=== PATIENT | male | born 1975 | race Caucasian/White ===

== ENCOUNTER 2018-12-16 19:19 | Emergency (ER) | payer OTHER ==
[2018-12-16] MEDS ORDERED: NS 1,000 ML IV ONE ×2 (19:40→21:03)
[2018-12-16] MEDS ORDERED: ONDANSETRON 4 MG/2 ML VIAL IVP ONE (19:45)
[2018-12-16] MEDS ORDERED: HYDROmorphONE/DILAUDID 2 MG/ML INJ IVP ONE (19:45)
[2018-12-16] MEDS ORDERED: HYDROmorphONE/DILAUDID 1 MG/ML INJ ONE (19:46)
--- NOTE | 2018-12-16 19:54 | EDPHY ---
H & P Time Seen by Provider: 12/16/18 19:39 HPI/ROS: HPI Lower abdominal pain. 43-year-old male by private vehicle with his . This patient reports sudden- onset right flank with right lower quadrant abdominal pain described as sharp, stabbing and cramping starting 45 min prior to arrival. He has had nausea but no vomiting. No urinary complaints. No prior surgical history. No history of ureterolithiasis. ROS: Constitutional: No fever, no chills. No weakness. Eyes: No discharge. No changes in vision. ENT: No sore throat. No nasal congestion or rhinorrhea. Respiratory: No cough. No shortness of breath. Cardiac: No chest pain, no palpitations. Gastrointestinal: As above, no vomiting, no diarrhea. Genitourinary: No hematuria. No dysuria or increased frequency with urination. Musculoskeletal: No back pain. No neck pain. No myalgias or arthralgias. Skin: No rashes. Neurological: No headache. No focal weakness or altered sensation. Past medical history: He denies any significant past medical history. Social history: Nonsmoker. Here with his . No alcohol. Physical Exam: General Appearance: Alert, he shaking and writhing, he appears very uncomfortable. This patient is responding to questions appropriately and in full sentences. This patient appears well-hydrated and well-nourished. Eyes: Pupils equal and round no pallor or injection. No lid edema, erythema or injection. Respiratory: There are no retractions, lungs are clear to auscultation with good air movement bilaterally. Cardiovascular: Regular rate and rhythm. No murmur. Gastrointestinal: Abdomen is soft with vague right lower quadrant tenderness on palpation, no masses, bowel sounds normal. No focal tenderness at McBurney' s point. No Ocampo sign. Neurological: Motor sensory function is grossly intact. Cranial nerves are normal. Gait is normal. Skin: Warm and dry, no rashes. Musculoskeletal: Neck is supple and nontender. Extremities are symmetrical. All joints range without pain or impingement. Psychiatric: No agitation. No depression. Database: EKG: Imaging: CT abdomen and pelvis without contrast: Significant for hydronephrosis and hydroureter on the right side which is moderate. He appears to have passed a 4 mm stone which is visualized in his bladder. He has sick stones in each kidney/ renal pelvis. He has a grade 3-4 spondylolisthesis L4-L5. He has a large prostate. Results were discussed with staff radiologist Dr. Ernie Orozco. Procedures: Emergency department course: Triage vital signs reviewed and are unremarkable. The patient's presentation is consistent with ureterolithiasis. IV was placed. He was started on IV normal saline with 1 L to be given over the next hour. Initial pain management will include 1 mg of IV hydromorphone. He will also receive 4 mg of IV Zofran. Hydromorphone will be repeated as needed for pain. IV Toradol be considered pending blood work. He will be sent for noncontrast CT scan of his abdomen and pelvis to evaluate for ureterolithiasis. Patient endorses workup. 9:50 p.m., the patient was re-evaluated, resting comfortably at this time. Repeat abdominal exam is soft, nontender nondistended. I discussed the results of his CT scan as noted above with him and his . He feels comfortable going home at this time and I feel he is safe for discharge. I will discharge him with a take-home pack of Vicodin for residual pain. I also discussed ibuprofen dosing. He is aware that he has renal stones which may give him problems in the future. I also discussed his CT diagnosis of spondylolisthesis. Follow-up and return to emergency department precautions were reviewed with him and his . All of their questions were answered. The patient was discharged in good condition with his . She is driving. Differential Diagnosis: The differential diagnosis on this patient includes but is not limited to ureterolithiasis, appendicitis, volvulus. This represents a partial list of diagnoses considered. These considerations are based on history, physical exam , past history, reassessment and diagnostic testing. Smoking Status: Never smoked Constitutional: Initial Vital Signs Temperature (C) 36.6 C 12/16/18 19:22 Heart Rate 73 12/16/18 19:22 Respiratory Rate 20 12/16/18 19:22 Blood Pressure 139/73 H 12/16/18 19:22 O2 Sat (%) 94 12/16/18 19:22 O2 Delivery Mode Room Air Allergies/Adverse Reactions: No Known Allergies Allergy (Unverified 12/16/18 19:21) Home Medications: Medication Instructions Recorded NK [No Known Home Meds] 12/16/18 Medical Decision Making - Diagnostics Imaging Results: Imaging Impressions Abdomen/Pelvis CT 12/16/18 19:49 Impression: 1. Bilateral nephrolithiasis. 2. Mild right hydroureteronephrosis with evidence of a recently-passed 4 mm stone residing in the posterior right aspect of the urinary bladder. 3. Mild prostatomegaly. 4. Grade I/II anterolisthesis at L5-S1 with accompanying spondylolysis. Attention: This CT examination is specifically designed to evaluate patients who are clinically suspected of having acute obstructive uropathy. This examination does not use radiographic contrast, and as such, provides only a limited evaluation of the abdomen, pelvis, and retroperitoneum. If there is further clinical suspicion for pathological conditions other than obstructive uropathy, a complete CT evaluation of the abdomen and pelvis utilizing intravenous, oral, and rectal contrast should be considered. Findings were discussed with Juanito Skinner MD at 21:42, on 12/16/2018. - Data Points Laboratory Results: Laboratory Results 12/16/18 19:45 12/16/18 19:45 12/16/18 12/16/18 12/16/18 21:20 19:54 19:45 WBC RBC Hgb POC Hgb 15.0 gm/dL gm/dL (13.7-17.5) Hct POC Hct 44 % % (40-51) MCV MCH MCHC RDW Plt Count MPV Neut % (Auto) Lymph % (Auto) [place] % (Auto) Eos % (Auto) Baso % (Auto) Nucleat RBC Rel Count Absolute Neuts (auto) Absolute Lymphs (auto) Absolute Monos (auto) Absolute Eos (auto) Absolute Basos (auto) Absolute Nucleated RBC Immature Gran % Immature Gran # POC Sodium 144 mEq/L mEq/L (135-145) Sodium 139 mEq/L mEq/L (135-145) POC Potassium 3.3 mEq/L mEq/L (3.3-5.0) Potassium 3.4 mEq/L L mEq/L (3.5-5.2) POC Chloride 107 mEq/L mEq/L (97-110) Chloride 107 mEq/L mEq/L (97-110) Carbon Dioxide 19 mEq/l L mEq/l (22-31) POC Total CO2 19 mEq/L L mEq/L (22-31) Anion Gap 13 mEq/L mEq/L (6-14) POC BUN 15 mg/dL mg/dL (7-23) BUN 16 mg/dL mg/dL (7-23) Creatinine 1.2 mg/dL mg/dL (0.7-1.3) POC Creatinine 1.2 mg/dL mg/dL (0.7-1.3) Estimated GFR > 60 Glucose 100 mg/dL mg/dL (70-100) POC Glucose 102 mg/dL H mg/dL (70-100) Calcium 9.8 mg/dL mg/dL (8.5-10.4) Urine Color YELLOW Urine Appearance CLEAR Urine pH 5.0 (5.0-7.5) Ur Specific [place] 1.025 (1.002-1.030) Urine Protein NEGATIVE (NEGATIVE) Urine Ketones 1+ H (NEGATIVE) Urine Blood 3+ H (NEGATIVE) Urine Nitrate NEGATIVE (NEGATIVE) Urine Bilirubin NEGATIVE (NEGATIVE) Urine Urobilinogen NEGATIVE EU EU (0.2-1.0) Ur Leukocyte Esterase NEGATIVE (NEGATIVE) Urine RBC 50-182 /hpf H /hpf (0-3) Urine WBC 1-3 /hpf /hpf (0-3) Ur Epithelial Cells NONE SEEN /lpf /lpf (NONE-1+) Urine Mucus TRACE /lpf /lpf (NONE-1+) Urine Glucose NEGATIVE (NEGATIVE) 12/16/18 19:45 WBC 8.96 10^3/uL 10^3/uL (3.80-9.50) RBC 4.66 10^6/uL 10^6/uL (4.40-6.38) Hgb 14.9 g/dL g/dL (13.7-17.5) POC Hgb Hct 44.9 % % (40.0-51.0) POC Hct MCV 96.4 fL fL (81.5-99.8) MCH 32.0 pg pg (27.9-34.1) MCHC 33.2 g/dL g/dL (32.4-36.7) RDW 12.1 % % (11.5-15.2) Plt Count 258 10^3/uL 10^3/uL (150-400) MPV 11.4 fL fL (8.7-11.7) Neut % (Auto) 54.5 % % (39.3-74.2) Lymph % (Auto) 36.0 % % (15.0-45.0) [place] % (Auto) 7.9 % % (4.5-13.0) Eos % (Auto) 0.9 % % (0.6-7.6) Baso % (Auto) 0.4 % % (0.3-1.7) Nucleat RBC Rel Count 0.0 % % (0.0-0.2) Absolute Neuts (auto) 4.87 10^3/uL 10^3/uL (1.70-6.50) Absolute Lymphs (auto) 3.23 10^3/uL H 10^3/uL (1.00-3.00) Absolute Monos (auto) 0.71 10^3/uL 10^3/uL (0.30-0.80) Absolute Eos (auto) 0.08 10^3/uL 10^3/uL (0.03-0.40) Absolute Basos (auto) 0.04 10^3/uL 10^3/uL (0.02-0.10) Absolute Nucleated RBC 0.00 10^3/uL 10^3/uL (0-0.01) Immature Gran % 0.3 % % (0.0-1.1) Immature Gran # 0.03 10^3/uL 10^3/uL (0.00-0.10) POC Sodium Sodium POC Potassium Potassium POC Chloride Chloride Carbon Dioxide POC Total CO2 Anion Gap POC BUN BUN Creatinine POC Creatinine Estimated GFR Glucose POC Glucose Calcium Urine Color Urine Appearance Urine pH Ur Specific [place] Urine Protein Urine Ketones Urine Blood Urine Nitrate Urine Bilirubin Urine Urobilinogen Ur Leukocyte Esterase Urine RBC Urine WBC Ur Epithelial Cells Urine Mucus Urine Glucose Medications Given: Discontinued Medications Hydromorphone HCl (Dilaudid) 1 mg IVP EDNOW ONE Stop: 12/16/18 19:46 Last Admin: 12/16/18 19:49 Dose: 1 mg Sodium Chloride (Ns) 1,000 mls @ 0 mls/hr IV EDNOW ONE; Wide Open PRN Reason: Protocol Stop: 12/16/18 19:41 Last Admin: 12/16/18 21:18 Dose: 1,000 mls Sodium Chloride (Ns) 1,000 mls @ 0 mls/hr IV EDNOW ONE; Wide Open PRN Reason: Protocol Stop: 12/16/18 21:04 Last Admin: 12/16/18 21:18 Dose: 1,000 mls Ondansetron HCl (Zofran) 4 mg IVP EDNOW ONE Stop: 12/16/18 19:46 Last Admin: 12/16/18 19:49 Dose: 4 mg Point of Care Test Results: Chemistry 12/16/18 19:54 POC Sodium 144 mEq/L mEq/L (135-145) POC Potassium 3.3 mEq/L mEq/L (3.3-5.0) POC Chloride 107 mEq/L mEq/L (97-110) POC Total CO2 19 mEq/L L mEq/L (22-31) POC BUN 15 mg/dL mg/dL (7-23) POC Creatinine 1.2 mg/dL mg/dL (0.7-1.3) POC Glucose 102 mg/dL H mg/dL (70-100) ISTAT H&H 12/16/18 19:54 POC Hgb 15.0 gm/dL gm/dL (13.7-17.5) POC Hct 44 % % (40-51) Departure - Departure Disposition: Home, Routine, Self-Care Clinical Impression: Abdominal pain, Kidney stone on right side, Spondylolisthesis at L4-L5 level Condition: Good Instructions: Spondylolisthesis (ED), Kidney Stones (ED) Additional Instructions: Read and follow provided instructions. Follow-up with Urology for re-evaluation and further management of your kidney stones in the next 3-5 days. If you develop lower back pain, any loss of sensation in your lower extremities , weakness, bowel or bladder incontinence return to the emergency department for evaluation. Narcotic pain medication: 1-2 every 4-6 hours as needed for pain. Ibuprofen dosin mg every 6 hours with meals for the next 3 days only. Take only as needed for pain. Return to the emergency department for return of pain, nausea and vomiting or other serious concerns. Referrals: Ana Maria Luong MD [Medical Doctor] - As per Instructions Yury Friedman MD [Primary Care Provider] - As per Instructions
[2018-12-16 19:58] LABS: PLATELET COUNT 258 10^3/uL (150-400)
[2018-12-16] MEDS ORDERED: HYDROCOD/APAP 5/325 PREPACK#6 BTL TAKEHOME ONE (22:01)
[2018-12-16 22:11] VITALS: BP 149/77
== END 2018-12-16 22:11 | disposition home or self-care (01) ==
DX: N13.2 Hydronephrosis with renal and ureteral calculous obstruction (principal); N40.0 Benign prostatic hyperplasia without lower urinary tract symptoms; M43.16 Spondylolisthesis, lumbar region; E86.9 Volume depletion, unspecified
CPT/HCPCS: 82435-PO; 82565-PO; 82947-PO; 84132-PO; 84295-PO; 84520-PO; 85014-ER; 96374; J1170; J2405